=== PATIENT | female | born 1970 | race Caucasian/White ===

== ENCOUNTER 2018-01-03 08:28 | Emergency (ER) | payer OTHER ==
[2018-01-03 08:45] VITALS: BP 128/91
--- NOTE | 2018-01-03 09:45 | UC ---
Dental HPI - HPI Summary HPI Summary: 47 yo female presents with right upper tooth pain. She tells me that she had some dental work done here a few weeks ago and a filling was placed, but told she probably would need a root canal. Last night developed pain in this tooth and today noticed some swelling to the gum. She has been taking ibuprofen for pain with no relief. She is able to eat and drink. Denies fever or chills. - History of Current Complaint Chief Complaint: UCDentalProblem Stated Complaint: TOOTHACHE Time Seen by Provider: 01/03/18 09:45 Hx Obtained From: Patient Onset/Duration: Sudden Onset Severity: Moderate Pain Intensity: 8 Pain Scale Used: 0-10 Numeric - Allergies/Home Medications Allergies/Adverse Reactions: Allergies Allergy/AdvReac Type Severity Reaction Status Date / Time Penicillins Allergy Unknown Verified 01/03/18 08:45 Reaction Details Home Medications: Home Medications Ibuprofen 800 mg PO 01/03/18 [History] traZODone TAB* [Desyrel TAB*] 50 mg PO BEDTIME 01/03/18 [History Confirmed 01/03] PMH/Surg Hx/FS Hx/Imm Hx - Surgical History Surgical History: Yes Surgery Procedure, Year, and Place: [facility] - Family History Known Family History: Positive: None - Social History Occupation: Employed Full-time Lives: With Family Alcohol Use: Rare Substance Use Type: None Smoking Status (MU): Never Smoked Tobacco Review of Systems Constitutional: Negative Skin: Negative Eyes: Negative ENT: Dental Pain Respiratory: Negative Cardiovascular: Negative Gastrointestinal: Negative Neurovascular: Negative Neurological: Negative Psychological: Negative All Other Systems Reviewed And Are Negative: Yes Physical Exam - Summary Physical Exam Summary: GENERAL: NAD. WDWN. No pain distress. SKIN: No rashes, sores, lesions, or open wounds. HEENT: Head: AT/NC Eyes: EOM intact. Conjunctiva clear without inflammation or discharge. Nose: Nasal mucosa pink and moist. NTTP maxillary and frontal sinus. Throat: Posterior oropharynx without exudates, erythema, or tonsillar enlargement. Uvula midline. NECK: Supple. Nontender. No lymphadenopathy. CHEST: CTAB. No r/r/w. No accessory muscle use. Breathing comfortably and in no distress. CV: RRR. Without m/r/g. Pulses intact. Cap refill <2seconds NEURO: Alert. PSYCH: Age appropriate behavior. Triage Information Reviewed: Yes Vital Signs: Initial Vital Signs Temp 99.5 F 01/03/18 08:41 Pulse 89 01/03/18 08:41 Resp 18 01/03/18 08:41 BP 128/91 01/03/18 08:41 Pulse Ox 100 01/03/18 08:41 Vital Signs Reviewed: Yes Dental: Positive: Percussion Tenderness @ - Tooth 2, Abscess @ - Tooth 2. Negative: Gross Decay/Caries @, Dental Fracture @, Cellulitis @, Cervical Lymphadenopathy, Bleeding Dental Complaint Course/Dx - Course Course Of Treatment: Tooth 2 Abscess. Rx for clindamycin. Reference #: [id number] - Differential Dx/Diagnosis Provider Diagnoses: Tooth 2 abscess Discharge - Sign-Out/Discharge Documenting (check all that apply): Patient Departure All imaging exams completed and their final reports reviewed: No Studies - Discharge Plan Condition: Stable Disposition: HOME Prescriptions: Clindamycin HCl 300 mg PO TID #30 capsule HYDROcodone/ACETAMIN 5-325 MG* [[place] 5-325 TAB*] 1 tab PO BID PRN #6 tab MDD 2 PRN Reason: Pain Patient Education Materials: Dental Abscess (ED) Referrals: No Primary Care Phys,NOPCP [Medical Doctor] - Additional Instructions: If you develop a fever, shortness of breath, chest pain, new or worsening symptoms - please call your PCP or go to the ED. 1) Please follow up with your dentist as soon as possible - Billing Disposition and Condition Condition: STABLE Disposition: Home
== END 2018-01-03 10:08 | disposition home or self-care (01) ==
LOC: UCEAST 08:28
DX: K04.7 Periapical abscess without sinus (principal); Z88.0 Allergy status to penicillin
CPT/HCPCS: 99212; G0463

== ENCOUNTER 2019-01-15 15:29 | Emergency (ER) | payer OTHER ==
[2019-01-15 16:31] VITALS: BP 152/95
--- NOTE | 2019-01-15 17:14 | UC ---
Ear Complaint HPI - HPI Summary HPI Summary: 48 yo female presents with RIGHT ear pain. She tells me that over the last 5 days she has had right ear pain and occasional drainage. Last night her ear pain became severe and she has muffled hearing with increased drainage. She has taken ibuprofen with little relief. Denies trauma, headache, dizziness, fever. - History of Current Complaint Chief Complaint: UCEar Stated Complaint: EAR ACHE Time Seen by Provider: 01/15/19 17:13 Hx Obtained From: Patient Severity Initially: Severe Severity Currently: Severe Pain Intensity: 10 Pain Scale Used: 0-10 Numeric - Allergies/Home Medications Allergies/Adverse Reactions: Allergies Allergy/AdvReac Type Severity Reaction Status Date / Time Penicillins Allergy Unknown Verified 01/15/19 16:31 Reaction Details Home Medications: Home Medications Levonorgestrel-Ethin Estradiol [Evangelina 90-20 Mcg Tablet] 1 tab PO DAILY [History Confirmed 01/15/19] PMH/Surg Hx/FS Hx/Imm Hx - Additional Past Medical History Additional PMH: None - Surgical History Surgical History: Yes Surgery Procedure, Year, and Place: [place] - Family History Known Family History: Positive: None - Social History Lives: With Family Alcohol Use: Occasionally Substance Use Type: None Smoking Status (MU): Never Smoked Tobacco Review of Systems All Other Systems Reviewed And Are Negative: No Constitutional: Positive: Negative Skin: Positive: Negative Eyes: Positive: Negative ENT: Positive: Ear Ache Respiratory: Positive: Negative Cardiovascular: Positive: Negative Gastrointestinal: Positive: Negative Neurovascular: Positive: Negative Neurological: Positive: Negative Psychological: Positive: Negative Physical Exam - Summary Physical Exam Summary: GENERAL: NAD. WDWN. No pain distress. SKIN: No rashes, sores, lesions, or open wounds. HEENT: Head: AT/NC Eyes: EOM intact. Conjunctiva clear without inflammation or discharge. Ears: Hearing grossly normal. B/L TM intact and without erythema. RIGHT ear canal moderate edema and clear/white discharge. No mastoid tenderness Nose: Nasal mucosa pink and moist. NTTP maxillary and frontal sinus. Throat: Posterior oropharynx without exudates, erythema, or tonsillar enlargement. Uvula midline. NECK: Supple. Nontender. No lymphadenopathy. CHEST: CTAB. No r/r/w. No accessory muscle use. Breathing comfortably and in no distress. CV: RRR. Without m/r/g. Pulses intact. NEURO: Alert. PSYCH: Age appropriate behavior. Triage Information Reviewed: Yes Vital Signs: Initial Vital Signs Temp 99.3 F 01/15/19 16:28 Pulse 78 01/15/19 16:28 Resp 18 01/15/19 16:28 BP 152/95 01/15/19 16:28 Pulse Ox 98 01/15/19 16:28 Vital Signs Reviewed: Yes Ear Complaint Course/Dx - Course Course Of Treatment: Right otitis externa. In the clinic pt had pain and stated ibuprofen was not helping. 0.5mL of lidocaine 2% was instilled into her ear for comfort. - Differential Dx/Diagnosis Provider Diagnosis: Right otitis externa Discharge ED - Sign-Out/Discharge Documenting (check all that apply): Patient Departure All imaging exams completed and their final reports reviewed: No Studies - Discharge Plan Condition: Stable Disposition: HOME Prescriptions: Ciproflox/Dexameth OTIC.SUSP* [Ciprodex Otic*] 5 drop RIGHT EAR BID #1 bottle Patient Education Materials: Otitis Externa (ED) Referrals: Noah Singh [Primary Care Provider] - Additional Instructions: If you develop a fever, shortness of breath, chest pain, new or worsening symptoms - please call your PCP or go to the ED immediately. Your blood pressure was high at todays visit. Please see your primary provider within 4 weeks for recheck and re-evaluation. - Billing Disposition and Condition Condition: STABLE Disposition: Home - Attestation Statements Provider Attestation: Per institutional requirements, I have reviewed the chart, however, I was not consulted specifically or made aware of this patient by the midlevel provider. I did not personally evaluate, interact with , or disposition this patient.
[2019-01-15] MEDS ORDERED: Lidocaine 2% PF * 5 ML VIAL INJ ONE (17:17)
== END 2019-01-15 17:40 | disposition home or self-care (01) ==
LOC: UCEAST 15:29
DX: H66.91 Otitis media, unspecified, right ear (principal); Z88.0 Allergy status to penicillin
CPT/HCPCS: 99212; G0463